=== PATIENT | male | born 2000 | race Caucasian/White ===

== ENCOUNTER 2022-11-18 21:18 | Emergency (ER) | payer OTHER, SELFPAY ==
[2022-11-18 21:25] VITALS: BP 130/70; PULSE 70; RESP 16; TEMP 37.1; O2SAT 98; BMI 26.6
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
--- OUTSIDE RECORDS SUMMARY | 2022-11-18 23:24 | XMS_ITS | Continuity of Care Document ---
Author Name Unknown Organization [facility] [employer] Address [address] [address]- Care Team Providers Care Blood Bank Booking Clerk Name Role Phone Dario Mercer MD Primary Care Physician Encounter [facility] Date(s): 02/18/20 - 03/19/20 [facility] [employer] [facility] [address] [facility] [address] [place] [address]- Attending Physician: AdmAshwin dobson Admitting Physician: Admtr, ArLonnie Referring Physician: Admtr, Ar8 Allergies, Adverse Reactions, Alerts No Known Medication Allergies Immunizations Given and Recorded Vaccine Date Status Refusal Reason influenza virus vaccine, inactivated 04/10/18 Give n influenza virus vaccine, inactivated 03/05/17 Give n influenza virus vaccine, inactivated 11/26/13 Skip rded meningococcal group B vaccine 04/26/17 Given meningococcal group B vaccine 03/05/17 Given Meningococcal Conjugate Vaccine 03/05/17 Given Human Papillomavirus Vaccine 11/03/15 Given Human Papillomavirus Vaccine 1 06/22/15 Given Human Papillomavirus Vaccine 04/06/14 Recorded Varicella Virus Vaccine 04/06/14 Recorded Varicella Virus Vaccine 08/28/00 Recorded tetanus/diphtheria/pertussis, acel(Tdap) 02/20/11 Recorded Hepatitis A Pediatric Vaccine 11/29/03 Recorded Hepatitis A Pediatric Vaccine 10/02/02 Given Poliovirus Vaccine, Inactivated 11/29/03 Recorded Poliovirus Vaccine, Inactivated 03/22/00 Recorded Poliovirus Vaccine, Inactivated 99 Recorded Poliovirus Vaccine, Inactivated 99 Recorded diphtheria/tetanus/pertussis, acel(DTaP) 11/29/03 Recorded diphtheria/tetanus/pertussis, acel(DTaP) 07/29/01 Recorded diphtheria/tetanus/pertussis, acel(DTaP) 03/22/00 Recorded diphtheria/tetanus/pertussis, acel(DTaP) 99 Recorded diphtheria/tetanus/pertussis, acel(DTaP) 99 Recorded Measles/Mumps/Rubella Virus Vaccine 11/29/03 Recor ded Measles/Mumps/Rubella Virus Vaccine 07/29/01 Recor ded haemophilus b conjugate (PRP-T) vaccine 07/29/01 R ecorded haemophilus b conjugate (PRP-T) vaccine 03/22/00 R ecorded haemophilus b conjugate (PRP-T) vaccine 99 R ecorded haemophilus b conjugate (PRP-T) vaccine 99 R ecorded pneumococcal 7-valent vaccine 08/28/00 Recorded pneumococcal 7-valent vaccine 03/22/00 Recorded pneumococcal 7-valent vaccine 01/10/00 Recorded pneumococcal 7-valent vaccine 99 Recorded hepatitis B pediatric vaccine 03/22/00 Recorded hepatitis B pediatric vaccine 99 Recorded hepatitis B pediatric vaccine 99 Recorded 1Result Comment: [06/22/2015] SAS Medications Advil 400 mg, By Mouth, Every 6 hours, Refills 0, Maintenance, 05/03/16 20:10:27 Start Date: 05/03/16 Status: Ordered Benzac AC 5% topical gel 1 applicator, Topically, Daily in AM, # 90 Gm, 11 Refills, Maintenance, 04/10/18 13:37:53 EST, Gel,1 applicator Topically Daily in AM Start Date: 04/10/18 Status: Ordered Naprosyn 500 mg oral tablet 1 tablet = 500 mg, By Mouth, 2 times a day, PRN Pain, # 14 tablet, 0 Refills, Maintenance, 189:29:19 EDT, Tablet Start Date: 09/03/17 Status: Ordered SUMAtriptan 25 mg oral tablet 1 tablet = 25 mg, By Mouth, Daily, PRN for migraine headache, may repeat dose after 2 hours up to amaximum of 2, # 9 tablet, 3 Refills, Maintenance, 03/19/18 17:33:38 EST, Tablet Start Date: 03/19/18 Status: Ordered tretinoin 0.01% topical gel 1 application, Topically, Daily at bedtime, # 45 Gm, 11 Refills, Maintenance, 04/10/18 13:38:49 EST, Gel, 1 application Topically Daily at bedtime Start Date: 04/10/18 Status: Ordered Problem List Condition Effective Dates Status Health Status Inform ant Acne(Confirmed) Active Atopic dermatitis(Confirmed) Active Migraine(Confirmed) Active Well adult exam(Confirmed) Active Social History Social History Type Response Tobacco Use: Has used Vape. Sex
--- OUTSIDE RECORDS SUMMARY | 2022-11-18 23:24 | XMS_ITS | Continuity of Care Document ---
Author Name Unknown Organization [facility] Address [address] [place] [address]- Care Team Providers Care Stock Raiser Name Role Phone Dario Mercer MD Primary Care Physician Encounter [facility] Date(s): 11/24/20 - 12/24/20 [facility] [address] [place] [address]- Attending Physician: AdmAshwin dobson Admitting Physician: Admtr, ArLonnie Referring Physician: Admtr, Ar8 Allergies, Adverse Reactions, Alerts No Known Medication Allergies Immunizations Given and Recorded Vaccine Date Status Refusal Reason SARS-CoV-2 (COVID-19) mRNA BNT-162b2 vac 08/12/20 Given SARS-CoV-2 (COVID-19) mRNA BNT-162b2 vac 07/22/20 Given influenza virus vaccine, inactivated 04/10/18 Give n [...] Inform ant Acne(Confirmed) Active Atopic dermatitis(Confirmed) Active Injury of right shoulder(Confirmed) 10/21/20 Active Migraine(Confirmed) Active Well adult exam(Confirmed) Active Social History Social History Type Response Tobacco Use: Has used Vape. Sex
--- OUTSIDE RECORDS SUMMARY | 2022-11-18 23:24 | XMS_ITS | Continuity of Care Document ---
Author Name Unknown Organization [facility] Address Unknown Care Team Providers Care Coating Machine Operator Name Role Phone Dario Mercer MD Primary Care Physician [phone] Encounter [facility] Date(s): 03/23/21 - 04/22/21 [facility] Allergies, Adverse Reactions, Alerts No Known Medication [...]
--- OUTSIDE RECORDS SUMMARY | 2022-11-18 23:24 | XMS_ITS | Continuity of Care Document ---
Author Name Unknown Organization [facility] [employer] Address [address] [address]- Care Team Providers Care Aquaculturist Name Role Phone Ruslan ARNOLD, Dario Contreras Primary Care Physician Encounter [facility] Date(s): 02/18/20 - 02/25/20 [facility] [address] [address] Attending Physician: Carol ARNOLD, Arline Rosa Allergies, Adverse Reactions, Alerts No Known Medication [...]
--- OUTSIDE RECORDS SUMMARY | 2022-11-18 23:24 | XMS_ITS | Continuity of Care Document ---
Author Name Unknown Organization [facility] [employer] Address [address] [address]- Care Team Providers Care Systems Navigator Name Role Phone Dario Mercer MD Primary Care Physician Encounter [facility] Date(s): 02/17/20 - 02/24/20 [facility] [employer] [facility] [address] [address] Attending Physician: Dario Mercer MD Allergies, Adverse Reactions, Alerts No Known Medication [...]
--- OUTSIDE RECORDS SUMMARY | 2022-11-18 23:24 | XMS_ITS | Continuity of Care Document ---
Author Name Unknown Organization [facility] [employer] Address [address] [address]- Care Team Providers Care Molder Punch Name Role Phone Dario Mercer MD Primary Care Physician [phone] Encounter [facility] Date(s): 02/08/20 - 03/18/20 [facility] [employer] [facility] [address] [address] Attending Physician: Dario Mercer MD Allergies, Adverse [...]
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
--- OUTSIDE RECORDS SUMMARY | 2022-11-18 23:25 | XMS_ITS | Continuity of Care Document ---
Author Name Unknown Organization [facility] Address [address] [place] [address]- Care Team Providers Care Disability Liaison Officer Name Role Phone Dario Mercer MD Primary Care Physician [phone] Encounter [facility] Date(s): 10/24/20 - 11/23/20 [facility] [address] [place] [address]- Allergies, Adverse Reactions, Alerts No Known Medication [...]
[2022-11-18] MEDS: Diphth,Pertus(ACell),Tet Adult 0.5 ML SYRINGE IM (23:29)
[2022-11-19 00:36] VITALS: BP 116/73; PULSE 65; RESP 16; TEMP 36.9; O2SAT 97
--- NOTE | 2022-11-19 00:37 | PC.NURSE ---
clean dry dressing placed over sutures. pt tolerated we cms intact pt calm and cooperative. vss. pt ambulatory at discharge. pt provided with discharge packet. pt verbalized understanding of discharge plan
== END 2022-11-19 00:39 | disposition home or self-care (01) ==
PROVIDERS: Emergency Provider Internal Medicine; PCP Pediatrics
DX: S61.412A Laceration without foreign body of left hand, initial encounter (principal); W45.8XXA Other foreign body or object entering through skin, initial encounter; Y93.9 Activity, unspecified; Y92.9 Unspecified place or not applicable; Y99.9 Unspecified external cause status; Z23 Encounter for immunization
CPT/HCPCS: 12001; 90471; 90715; 99284

== ENCOUNTER 2022-11-26 14:53 | Emergency (ER) | payer OTHER, SELFPAY ==
[2022-11-26 15:38] VITALS: BP 134/62; PULSE 60; RESP 16; TEMP 36.9; O2SAT 98; BMI 26.6
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
== END 2022-11-26 15:58 | disposition home or self-care (01) ==
LOC: HO.ED 15:50
PROVIDERS: Emergency Provider Emergency Medicine; PCP Pediatrics
DX: Z48.02 Encounter for removal of sutures (principal)
CPT/HCPCS: 99282

== ENCOUNTER 2025-01-03 19:09 | Emergency (ER) | payer OTHER, SELFPAY ==
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
--- NOTE | ~2025-01-03 | XR_ITS ---
CLINICAL HISTORY: fall, pain Exam: AP pelvis with AP and frog-leg lateral views of the right hip. Comparison: None provided. Findings: Bony alignment about the pelvis is anatomic. Specifically, hip joint spaces are well preserved and normal alignment. No fracture or bony destructive change. No erosions. Sacroiliac joints and pubic symphysis are unremarkable Impression: No fracture This document has been electronically signed by: Umair Friedman MD on 01/03/2025 19:38:44
[2025-01-03 19:16] VITALS: BP 138/61; PULSE 99; RESP 20; TEMP 36.6; O2SAT 95; BMI 27.8
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
[2025-01-03 22:05] VITALS: BP 122/60; PULSE 84; RESP 16; TEMP 36.8; O2SAT 96
[2025-01-03 22:13] VITALS: BP 122/60; PULSE 84; RESP 16; TEMP 36.8; O2SAT 96
[2025-01-03 22:43] LABS: MANUAL DIFF FLAG NO
[2025-01-03 22:44] LABS: Hematocrit 46.1 % (42.0-52.0); Hemoglobin 16.2 g/dl (14.0-18.0); Imm Gran Abs Auto 0.06 X10*3/uL (0.00-0.03); Imm Gran Pct Auto 0.4 % (0.0-0.4); Lymphocytes Absolute Auto 2.1 X10*3/uL (1.2-4.9); Mean Corpuscular HGB Conc 35.1 g/dl (31.0-36.0); Mean Corpuscular Hemoglobin 29.8 pg (27.0-33.0); Mean Corpuscular Volume 84.9 fL (80.0-98.0); NRBC Abs Auto 0.000 X10*3/uL (0.0-0.012); NRBC Pct Auto 0.0 /100WBC (0.0-0.2); Platelet Count 224 X10*3/uL (160-400); Red Blood Count 5.43 X10*6/uL (4.60-5.80); White Blood Count 14.1 X10*3/uL (4.8-10.8)
[2025-01-03] MEDS: Diphth,Pertus(ACell),Tet Adult 0.5 ML SYRINGE IM (22:53)
[2025-01-03 22:58] LABS: Anion Gap 13 (12-20); Blood Urea Nitrogen 16 mg/dL (9-16); Calcium 9.1 mg/dL (8.4-10.2); Carbon Dioxide 23 mmol/L (22-29); Chloride 108 mmol/L (96-108); Creatinine Clr Calc Pharmacy 110.8; Estimated Glomerular Filt Rate > 60; Potassium 3.9 mmol/L (3.3-5.1); Sodium 140 mmol/L (135-145)
[2025-01-03] MEDS: iohexoL 350 MG/ML 100 ML INFUS..BTL 85 ML IV (23:11)
[2025-01-04 00:02] VITALS: BP 122/60; PULSE 84; RESP 16; TEMP 36.8; O2SAT 96
== END 2025-01-04 00:02 | disposition home or self-care (01) ==
PROVIDERS: Emergency Provider Student in an Organized Health Care Education/Training Program; PCP Internal Medicine
DX: S70.01XA Contusion of right hip, initial encounter (principal); V19.9XXA Pedal cyclist (driver) (passenger) injured in unspecified traffic accident, initial encounter; Y93.55 Activity, bike riding; Y92.9 Unspecified place or not applicable; Y99.9 Unspecified external cause status; M25.551 Pain in right hip; Z23 Encounter for immunization
CPT/HCPCS: 36415; 73502; 74177; 80048; 85025; 90471; 90715; 99285; Q9967

== ENCOUNTER → 2025-01-03 19:17 | Outpatient (BNV) | payer OTHER, SELFPAY | PROVIDERS: Visit Provider Radiology Diagnostic Radiology | DX: M25.551 Pain in right hip (principal) | CPT/HCPCS: 73502 ==